=== PATIENT | female | born 1940 | race Caucasian/White ===

== ENCOUNTER 2021-01-30 18:57 | Inpatient (IN) | payer MEDICARE, OTHER ==
[~2021-01-30] VITALS: Ht 165.1 cm; Wt 63.1 kg
[~2021-01-30 18:57] MED LIST: 24HOUR ALLERGY10 MG PO; ALDACTONE25 MG PO; AMOXICILLIN500 MG PO; ANORO ELLIPTA1 EACH INH; ASPIR-TRIN325 MG PO; CARAFATE1 GM PO; CELEXA20 MG PO; CLARITHROMYCIN500 M1 PO; CLARITIN10 MG PO; DIFLUCAN150 MG PO; FLEXERIL10 MG PO; FLONASE ALLER15.8 ML; IMDUR 30MG TABL30 MG PO; K-DUR20 MEQ PO; LASIX20 MG PO; LIPITOR20 MG PO; METFORMIN HCL500 MG PO; MOBIC7.5 MG PO; NORCO 5-325 TA1 EACH PO; NORCO 5/3251 EACH PO; NORVASC5 MG PO; OMEPRAZOLE 20MG20 MG PO; ONE-A-DAY ESSE1 EACH PO; PHENERGAN25 M1 PO; PREDNISONE 20MG20 MG PO; PREDNISONE20 MG PO; PREDNISONE5 MG PO; PRILOSEC20 MG PO; PRINIVIL20 MG PO; PROTONIX 40MG T40 MG PO; SINGULAIR10 MG PO; SYNTHROID100 MCG PO; TRICOR145 MG PO; VENTOLIN (2.5 MG/3 M INH; VICKS VAPORUB O50 GM EXT; VITAMIN D1000 UNI1 PO; ZANTAC150 MG PO; ZESTORETIC 20-1 EACH PO; ZYRTEC10 M3 PO
[2021-01-30 20:02] LABS: BASOPHIL 0.6 % (0-2); EOSINOPHIL 4.4 % (0-7); HCT 24.5 % (37.0-47.0); HGB 8.3 g/dl (12.5-16.0); LYMPHOCYTE 36.5 % (15-48); MCH 31.7 pg (25.0-31.0); MCHC 33.9 g/dL (32.0-36.0); MCV 93.5 fL (78.0-100.0); MPV 11.3 fL (6.0-9.5); NEUTROPHIL 49.3 % (41-80); NRBC 0; PLT 157 K/uL (150-400); RBC 2.62 M/uL (4.20-5.40)
[2021-01-30 20:06] LABS: INR 1.06 (0.9-1.2); PROTHROMBIN TIME 13.1 SECONDS (11.4-13.6)
[2021-01-30 20:13] LABS: ALBUMIN 2.9 g/dL (3.4-5.0); BILIRUBIN - TOTAL 0.3 mg/dL (0.2-1.0); BUN/CREAT RATIO (CALC) 34.6 RATIO; CREATININE 1.56 mg/dL (0.51-0.95); GLOBULIN (CALCULATION) 2.2 g/dL; TOTAL PROTEIN 5.1 g/dL (6.4-8.2)
[2021-01-30 20:15] LABS: POTASSIUM 5.3 mmol/L (3.5-5.1)
[2021-01-30 22:34] LABS: BILIRUBIN NEGATIVE (NEGATIVE); BLOOD NEGATIVE Ery/uL (NEGATIVE); CLARITY CLEAR (CLEAR); COLOR YELLOW (YELLOW); GLUCOSE (U) NORMAL (NORMAL); LEUKOCYTES TRACE Leu/uL (NEGATIVE); NITRITE NEGATIVE (NEGATIVE); PROTEIN 3+ mg/dL (NEGATIVE); UROBILINOGEN 0.2 mg/dL (0.2-1.0); pH 7.5 (5.0-9.0)
[2021-01-30 22:47] LABS: BACTERIA TRACE; SQUAMOUS EPITHELIAL CELLS RARE; TRANSITIONAL EPITHELIAL CELLS RARE; URINARY WBC RARE
[2021-01-31] MEDS ORDERED: MICRO-K10 MEQ PO (00:56)
[2021-01-31] MEDS ORDERED: MOBIC7.5 MG PO (00:58)
[2021-01-31] MEDS ORDERED: ALDACTONE25 M1 PO (00:58)
[2021-01-31] MEDS ORDERED: VENTOLIN HFA IN18 GM INH (00:59)
[2021-01-31] MEDS ORDERED: B12 ACTIVE1000 MCG PO (01:00)
[2021-01-31] MEDS ORDERED: TOPROL XL 25MG25 MG PO (01:01)
[2021-01-31] MEDS ORDERED: TORSEMIDE100 MG PO (01:01)
[2021-01-31 08:29] LABS: INR 1.09 (0.9-1.2); PROTHROMBIN TIME 13.4 SECONDS (11.4-13.6); PTT 32.3 SECONDS (22.2-34.7)
[2021-02-01 04:51] LABS: BASOPHIL 0.8 % (0-2); HCT 21.1 % (37.0-47.0); HGB 7.2 g/dl (12.5-16.0); LYMPHOCYTE 42.9 % (15-48); MCH 31.9 pg (25.0-31.0); MCHC 34.1 g/dL (32.0-36.0); MCV 93.4 fL (78.0-100.0); MONOCYTE 10.4 % (0-12); MPV 11.2 fL (6.0-9.5); NEUTROPHIL 41.7 % (41-80); NRBC 0; PLT 140 K/uL (150-400); RBC 2.26 M/uL (4.20-5.40); WBC 5.3 K/uL (4.0-10.5)
[2021-02-01 05:20] LABS: BUN/CREAT RATIO (CALC) 26.5 RATIO; CREATININE 1.62 mg/dL (0.51-0.95); POTASSIUM 4.7 mmol/L (3.5-5.1)
[2021-02-01 12:48] LABS: RETICULOCYTE COUNT 1.9 % (1.0-2.0)
[2021-02-01 12:56] LABS: IRON % SATURATION 25.9 %SAT (20-50)
[2021-02-01 13:58] LABS: FOLIC ACID (SERUM) 14.1 ng/mL (8.6-58.9)
--- NOTE | 2021-02-01 15:39 | NUR ---
02/01/21 Ms. Terry lives alone. She was 2 months ago after 45 years of marriage. She has 9 children. Her son visits daily. Ms. Terry was independent at home prior to admission. - Will monitor for discharge needs.
[2021-02-02 04:30] LABS: BASOPHIL 0.8 % (0-2); EOSINOPHIL 4.2 % (0-7); HCT 31.9 % (37.0-47.0); LYMPHOCYTE 34.8 % (15-48); MCHC 34.8 g/dL (32.0-36.0); MPV 11.3 fL (6.0-9.5); NEUTROPHIL 50.9 % (41-80); NRBC 0; PLT 141 K/uL (150-400); RBC 3.58 M/uL (4.20-5.40); RDW 13.2 % (11.5-14.0); WBC 6.5 K/uL (4.0-10.5)
[2021-02-02 04:46] LABS: HGB 11.1 g/dl (12.5-16.0); MCV 89.1 fL (78.0-100.0)
[2021-02-02 04:48] LABS: ALBUMIN 2.6 g/dL (3.4-5.0); BILIRUBIN - TOTAL 0.3 mg/dL (0.2-1.0); BUN/CREAT RATIO (CALC) 30.3 RATIO; CREATININE 1.22 mg/dL (0.51-0.95); GLOBULIN (CALCULATION) 2.7 g/dL; MAGNESIUM 1.8 mg/dL (1.8-2.4); PHOSPHORUS 3.2 mg/dL (2.6-4.7); POTASSIUM 4.6 mmol/L (3.5-5.1); TOTAL PROTEIN 5.3 g/dL (6.4-8.2)
[2021-02-03 06:50] LABS: HCT 36.8 % (37.0-47.0); HGB 12.7 g/dl (12.5-16.0); MCH 31.1 pg (25.0-31.0); MCHC 34.5 g/dL (32.0-36.0); MCV 90.2 fL (78.0-100.0); RBC 4.08 M/uL (4.20-5.40); WBC 10.4 K/uL (4.0-10.5)
[2021-02-03 07:12] LABS: BUN/CREAT RATIO (CALC) 23.5 RATIO; CREATININE 1.36 mg/dL (0.51-0.95); MAGNESIUM 2.1 mg/dL (1.8-2.4); POTASSIUM 4.3 mmol/L (3.5-5.1)
[2021-02-03] MEDS ORDERED: PROTONIX 40MG T40 MG PO (16:47)
== END 2021-02-03 17:30 | disposition home or self-care (01) | DRG 811 ==
LOC: FER 18:57 → FTCU 23:31
PROVIDERS: Emergency Medicine; Hospitalist; Internal Medicine Cardiovascular Disease; Nurse Practitioner; Surgery; ADMIT Internal Medicine
PROC: 30233N1 Transfusion of Nonautologous Red Blood Cells into Peripheral Vein, Percutaneous Approach (ICD-10-PCS; 2021-02-01)
PROC: 0DJD8ZZ Inspection of Lower Intestinal Tract, Via Natural or Artificial Opening Endoscopic (ICD-10-PCS; 2021-02-03)
PROC: 0DB98ZX Excision of Duodenum, Via Natural or Artificial Opening Endoscopic, Diagnostic (ICD-10-PCS; principal; 2021-02-03 12:00)
PROC: 0DB68ZX Excision of Stomach, Via Natural or Artificial Opening Endoscopic, Diagnostic (ICD-10-PCS; 2021-02-03 12:00)
DX: D64.9 Anemia, unspecified (principal); I21.A1 Myocardial infarction type 2; N17.9 Acute kidney failure, unspecified; I50.32 Chronic diastolic (congestive) heart failure; J44.9 Chronic obstructive pulmonary disease, unspecified; F17.210 Nicotine dependence, cigarettes, uncomplicated; K29.60 Other gastritis without bleeding; K44.9 Diaphragmatic hernia without obstruction or gangrene; Z20.822 Contact with and (suspected) exposure to COVID-19; I11.0 Hypertensive heart disease with heart failure; E11.9 Type 2 diabetes mellitus without complications; E78.5 Hyperlipidemia, unspecified; E03.9 Hypothyroidism, unspecified; I20.9 Angina pectoris, unspecified; K21.9 Gastro-esophageal reflux disease without esophagitis; E87.5 Hyperkalemia; F32.9 Major depressive disorder, single episode, unspecified; E83.51 Hypocalcemia; R13.10 Dysphagia, unspecified; K22.8 Other specified diseases of esophagus; R63.4 Abnormal weight loss; Z68.23 Body mass index [BMI] 23.0-23.9, adult; Z90.49 Acquired absence of other specified parts of digestive tract; Z85.038 Personal history of other malignant neoplasm of large intestine; Z79.82 Long term (current) use of aspirin; Z79.51 Long term (current) use of inhaled steroids; Z79.84 Long term (current) use of oral hypoglycemic drugs; Z79.899 Other long term (current) drug therapy
CPT/HCPCS: 36415; 36430; 71045; 80048; 80053; 80061; 81001; 82607; 82746; 82962; 83540; 83550; 83735; 83880; 84100; 84145; 84484; 85025; 85610; 85730; 86850; 86900; 86901; 86922; 88305; 93005; 94010; 94640; C9113; G0378; J0610; J1644; J1650; J2250; J2405; J2704; J7030; J7120; P9016; U0002

== ENCOUNTER 2021-04-15 16:27 | Inpatient (IN) | payer MEDICARE, OTHER ==
[~2021-04-15] VITALS: Ht 157.5 cm; Wt 64.6 kg
[~2021-04-15 16:27] MED LIST changes: +ALDACTONE25 M1 PO; +B12 ACTIVE1000 MCG PO; +MICRO-K10 MEQ PO; +TOPROL XL 25MG25 MG PO; +TORSEMIDE100 MG PO; +VENTOLIN HFA IN18 GM INH
[2021-04-15 18:59] LABS: BASOPHIL 0.7 % (0-2); EOSINOPHIL 2.2 % (0-7); HCT 24.1 % (37.0-47.0); HGB 8.1 g/dl (12.5-16.0); LYMPHOCYTE 38.2 % (15-48); MCH 29.8 pg (25.0-31.0); MCHC 33.6 g/dL (32.0-36.0); MCV 88.6 fL (78.0-100.0); MONOCYTE 9.5 % (0-12); MPV 11.7 fL (6.0-9.5); NEUTROPHIL 48.7 % (41-80); NRBC 0; PLT 168 K/uL (150-400); RBC 2.72 M/uL (4.20-5.40); RDW 13.9 % (11.5-14.0); WBC 5.8 K/uL (4.0-10.5)
[2021-04-15 19:13] LABS: ALBUMIN 3.6 g/dL (3.4-5.0); BILIRUBIN - TOTAL 0.4 mg/dL (0.2-1.0); CREATININE 2.46 mg/dL (0.51-0.95); GLOBULIN (CALCULATION) 2.8 g/dL; POTASSIUM 5.7 mmol/L (3.5-5.1); TOTAL PROTEIN 6.4 g/dL (6.4-8.2)
[2021-04-15 20:31] LABS: INR 1.08 (0.9-1.2); PROTHROMBIN TIME 13.4 SECONDS (11.8-13.4)
[2021-04-15] MEDS ORDERED: NORVASC5 MG PO (20:46)
[2021-04-15] MEDS ORDERED: K-DUR20 MEQ PO (20:48)
[2021-04-15] MEDS ORDERED: COLESTID 1GM TAB1 GM PO (20:50)
[2021-04-15] MEDS ORDERED: MOBIC7.5 MG PO (20:52)
[2021-04-15] MEDS ORDERED: ASPIRIN325 MG PO (20:53)
[2021-04-16 05:55] LABS: BASOPHIL 0.7 % (0-2); EOSINOPHIL 2.2 % (0-7); HCT 21.6 % (37.0-47.0); HGB 7.4 g/dl (12.5-16.0); LYMPHOCYTE 44.4 % (15-48); MCH 30.3 pg (25.0-31.0); MCHC 34.3 g/dL (32.0-36.0); MCV 88.5 fL (78.0-100.0); MONOCYTE 9.9 % (0-12); MPV 11.6 fL (6.0-9.5); NEUTROPHIL 42.8 % (41-80); NRBC 0; PLT 141 K/uL (150-400); RBC 2.44 M/uL (4.20-5.40); RDW 13.8 % (11.5-14.0); WBC 4.6 K/uL (4.0-10.5)
[2021-04-16 06:14] LABS: ALBUMIN 2.9 g/dL (3.4-5.0); BILIRUBIN - TOTAL 0.3 mg/dL (0.2-1.0); CREATININE 2.39 mg/dL (0.51-0.95); GLOBULIN (CALCULATION) 2.3 g/dL; POTASSIUM 4.9 mmol/L (3.5-5.1); TOTAL PROTEIN 5.2 g/dL (6.4-8.2)
[2021-04-16 12:11] LABS: AMYLASE 83 U/L (25-115); LIPASE 367 U/L (73-393)
[2021-04-17 07:29] LABS: BASOPHIL 0.4 % (0-2); EOSINOPHIL 2.1 % (0-7); HCT 19.4 % (37.0-47.0); HGB 6.6 g/dl (12.5-16.0); LYMPHOCYTE 24.4 % (15-48); MCH 31.1 pg (25.0-31.0); MCV 91.5 fL (78.0-100.0); MONOCYTE 8.4 % (0-12); MPV 11.9 fL (6.0-9.5); NEUTROPHIL 64.3 % (41-80); NRBC 0; PLT 117 K/uL (150-400); RBC 2.12 M/uL (4.20-5.40); WBC 4.8 K/uL (4.0-10.5)
[2021-04-17 07:47] LABS: CREATININE 1.63 mg/dL (0.51-0.95); POTASSIUM 4.5 mmol/L (3.5-5.1)
[2021-04-18 06:19] LABS: BASOPHIL 0.6 % (0-2); EOSINOPHIL 3.6 % (0-7); HCT 28.8 % (37.0-47.0); LYMPHOCYTE 30.5 % (15-48); MCH 30.3 pg (25.0-31.0); MCV 91.7 fL (78.0-100.0); MONOCYTE 9.1 % (0-12); MPV 11.7 fL (6.0-9.5); NEUTROPHIL 55.8 % (41-80); NRBC 0; PLT 117 K/uL (150-400); RBC 3.14 M/uL (4.20-5.40); RDW 14.9 % (11.5-14.0); WBC 5.1 K/uL (4.0-10.5)
[2021-04-18 06:23] LABS: HGB 9.5 g/dl (12.5-16.0)
[2021-04-18 06:50] LABS: IRON % SATURATION 48.7 %SAT (20-50)
[2021-04-18 08:05] LABS: BUN/CREAT RATIO (CALC) 29.9 RATIO; CREATININE 1.57 mg/dL (0.51-0.95); POTASSIUM 4.8 mmol/L (3.5-5.1)
[2021-04-18] MEDS ORDERED: LANSOPRAZOLE30 MG PO (12:08)
[2021-04-18] MEDS ORDERED: FOLIC ACID1 MG PO (12:08)
[2021-04-18] MEDS ORDERED: ASPIRIN EC81 MG PO (12:12)
== END 2021-04-18 13:00 | disposition home or self-care (01) | DRG 378 ==
LOC: FER 16:27 → FMS 20:45
PROVIDERS: Emergency Medicine; Internal Medicine; Nurse Practitioner; Surgery; ADMIT Internal Medicine
PROC: 0DJ08ZZ Inspection of Upper Intestinal Tract, Via Natural or Artificial Opening Endoscopic (ICD-10-PCS; 2021-04-16)
PROC: 30233N1 Transfusion of Nonautologous Red Blood Cells into Peripheral Vein, Percutaneous Approach (ICD-10-PCS; principal; 2021-04-17)
DX: K92.1 Melena (principal); N17.9 Acute kidney failure, unspecified; I13.0 Hypertensive heart and chronic kidney disease with heart failure and stage 1 through stage 4 chronic kidney disease, or unspecified chronic kidney disease; E03.9 Hypothyroidism, unspecified; J44.9 Chronic obstructive pulmonary disease, unspecified; E78.5 Hyperlipidemia, unspecified; F32.9 Major depressive disorder, single episode, unspecified; Z20.822 Contact with and (suspected) exposure to COVID-19; D52.9 Folate deficiency anemia, unspecified; N18.30 Chronic kidney disease, stage 3 unspecified; I50.9 Heart failure, unspecified; E11.22 Type 2 diabetes mellitus with diabetic chronic kidney disease; M19.90 Unspecified osteoarthritis, unspecified site; R01.1 Cardiac murmur, unspecified; F17.210 Nicotine dependence, cigarettes, uncomplicated; K21.9 Gastro-esophageal reflux disease without esophagitis; K44.9 Diaphragmatic hernia without obstruction or gangrene; Z90.49 Acquired absence of other specified parts of digestive tract; Z85.038 Personal history of other malignant neoplasm of large intestine; Z98.890 Other specified postprocedural states; Z79.84 Long term (current) use of oral hypoglycemic drugs; Z79.51 Long term (current) use of inhaled steroids; Z79.82 Long term (current) use of aspirin; Z79.899 Other long term (current) drug therapy; Z79.890 Hormone replacement therapy
CPT/HCPCS: 36415; 36430; 71045; 78278; 80048; 80053; 82150; 82607; 82728; 82746; 82962; 83540; 83550; 83690; 83880; 84484; 85025; 85610; 86850; 86900; 86901; 86922; 93005; 94010; 94640; A4641; A9560; C9113; G0378; J2250; J2405; J2704; J7030; J7120; P9016; U0002

== ENCOUNTER 2021-06-14 12:00 | Emergency (ER) | payer MEDICARE, OTHER ==
[~2021-06-14 12:00] MED LIST changes: +ASPIRIN EC81 MG PO; +ASPIRIN325 MG PO; +COLESTID 1GM TAB1 GM PO; +FOLIC ACID1 MG PO; +LANSOPRAZOLE30 MG PO
[2021-06-14 12:37] LABS: BILIRUBIN NEGATIVE (NEGATIVE); BLOOD NEGATIVE Ery/uL (NEGATIVE); CLARITY CLEAR (CLEAR); COLOR YELLOW (YELLOW); GLUCOSE (U) NORMAL (NORMAL); LEUKOCYTES 1+ Leu/uL (NEGATIVE); NITRITE NEGATIVE (NEGATIVE); PROTEIN TRACE (LOW) mg/dL (NEGATIVE); UROBILINOGEN 0.2 mg/dL (0.2-1.0); pH 5.5 (5.0-9.0)
[2021-06-14 12:45] LABS: BASOPHIL 0.4 % (0-2); EOSINOPHIL 1.5 % (0-7); HGB 10.9 g/dl (12.5-16.0); LYMPHOCYTE 25.4 % (15-48); MCH 31.6 pg (25.0-31.0); MCHC 34.1 g/dL (32.0-36.0); MCV 92.8 fL (78.0-100.0); MONOCYTE 10.3 % (0-12); MPV 11.5 fL (6.0-9.5); NEUTROPHIL 61.7 % (41-80); NRBC 0; PLT 207 K/uL (150-400); RBC 3.45 M/uL (4.20-5.40); RDW 14.8 % (11.5-14.0)
[2021-06-14 12:55] LABS: BACTERIA TRACE; SQUAMOUS EPITHELIAL CELLS RARE; URINARY WBC RARE
[2021-06-14 13:29] LABS: ALBUMIN 3.4 g/dL (3.4-5.0); BILIRUBIN - TOTAL 0.4 mg/dL (0.2-1.0); CREATININE 1.9 mg/dL (0.51-0.95); POTASSIUM 4.5 mmol/L (3.5-5.1); TOTAL PROTEIN 6.4 g/dL (6.4-8.2)
== END 2021-06-14 14:43 | disposition home or self-care (01) ==
LOC: FER 12:00
PROVIDERS: Internal Medicine; Nurse Practitioner Family
DX: R53.81 Other malaise (principal); E11.9 Type 2 diabetes mellitus without complications; J44.9 Chronic obstructive pulmonary disease, unspecified; I11.0 Hypertensive heart disease with heart failure; I50.9 Heart failure, unspecified; F17.210 Nicotine dependence, cigarettes, uncomplicated
CPT/HCPCS: 36415; 71045; 80053; 81001; 82270; 84484; 85025; 87088; 93005

== ENCOUNTER 2021-09-02 15:27 | Emergency (ER) | payer MEDICARE, OTHER ==
[2021-09-02 17:46] LABS: BILIRUBIN NEGATIVE (NEGATIVE); BLOOD NEGATIVE Ery/uL (NEGATIVE); CLARITY CLEAR (CLEAR); COLOR YELLOW (YELLOW); GLUCOSE (U) NORMAL (NORMAL); LEUKOCYTES TRACE Leu/uL (NEGATIVE); NITRITE NEGATIVE (NEGATIVE); PROTEIN TRACE (LOW) mg/dL (NEGATIVE); UROBILINOGEN 0.2 mg/dL (0.2-1.0); pH 5.5 (5.0-9.0)
[2021-09-02 17:46] LABS: BASOPHIL 0.8 % (0-2); HCT 27.5 % (37.0-47.0); HGB 9.2 g/dl (12.5-16.0); MCH 31.6 pg (25.0-31.0); MCHC 33.5 g/dL (32.0-36.0); MCV 94.5 fL (78.0-100.0); MPV 11.2 fL (6.0-9.5); NEUTROPHIL 57.7 % (41-80); NRBC 0; PLT 203 K/uL (150-400); RBC 2.91 M/uL (4.20-5.40); RDW 11.9 % (11.5-14.0); WBC 6.5 K/uL (4.0-10.5)
[2021-09-02 17:53] LABS: BACTERIA TRACE; SQUAMOUS EPITHELIAL CELLS RARE
[2021-09-02 17:56] LABS: ALBUMIN 4.3 g/dL (3.4-5.0); BILIRUBIN - TOTAL 0.3 mg/dL (0.2-1.0); CREATININE 2.15 mg/dL (0.51-0.95); GLOBULIN (CALCULATION) 2.4 g/dL; POTASSIUM 4.7 mmol/L (3.5-5.1); TOTAL PROTEIN 6.7 g/dL (6.4-8.2)
[2021-09-02 18:47] LABS: CORONAVIRUS 2019 SARS-COV-2 NEGATIVE (NEGATIVE); INFLUENZA A NAA NEGATIVE (NEGATIVE)
== END 2021-09-02 20:21 | disposition home or self-care (01) ==
LOC: FER 15:27
PROVIDERS: Emergency Medicine; Physician Assistant
DX: J02.9 Acute pharyngitis, unspecified (principal); R05.9 Cough, unspecified; R09.81 Nasal congestion; I13.0 Hypertensive heart and chronic kidney disease with heart failure and stage 1 through stage 4 chronic kidney disease, or unspecified chronic kidney disease; E11.22 Type 2 diabetes mellitus with diabetic chronic kidney disease; N18.30 Chronic kidney disease, stage 3 unspecified; I50.9 Heart failure, unspecified; F17.210 Nicotine dependence, cigarettes, uncomplicated; Z20.822 Contact with and (suspected) exposure to COVID-19; Z79.82 Long term (current) use of aspirin
CPT/HCPCS: 36415; 71046; 80053; 81001; 85025; U0002

== ENCOUNTER 2021-09-18 12:28 | Emergency (ER) | payer MEDICARE, OTHER ==
[2021-09-18 13:41] LABS: BASOPHIL 0.6 % (0-2); EOSINOPHIL 2.7 % (0-7); HCT 24.3 % (37.0-47.0); HGB 7.9 g/dl (12.5-16.0); LYMPHOCYTE 28.5 % (15-48); MCH 32.2 pg (25.0-31.0); MCHC 32.5 g/dL (32.0-36.0); MCV 99.2 fL (78.0-100.0); MONOCYTE 9.5 % (0-12); MPV 10.9 fL (6.0-9.5); NEUTROPHIL 58.5 % (41-80); NRBC 0; PLT 157 K/uL (150-400); RBC 2.45 M/uL (4.20-5.40); RDW 12.2 % (11.5-14.0); WBC 5.2 K/uL (4.0-10.5)
[2021-09-18 13:45] LABS: INR 1.13 (0.9-1.2); PROTHROMBIN TIME 13.9 SECONDS (11.8-13.4); PTT 26.4 SECONDS (24.4-34.7)
[2021-09-18 14:06] LABS: CORONAVIRUS 2019 SARS-COV-2 NEGATIVE (NEGATIVE); INFLUENZA A NAA NEGATIVE (NEGATIVE)
[2021-09-18 14:25] LABS: ALBUMIN 3.3 g/dL (3.4-5.0); BILIRUBIN - TOTAL 0.2 mg/dL (0.2-1.0); BUN/CREAT RATIO (CALC) 23.8 RATIO; CREATININE 1.3 mg/dL (0.51-0.95); GLOBULIN (CALCULATION) 2.2 g/dL; POTASSIUM 4.7 mmol/L (3.5-5.1); TOTAL PROTEIN 5.5 g/dL (6.4-8.2)
[2021-09-18 14:37] LABS: LACTIC ACID 1.1 mmol/L (0.4-1.9)
[2021-09-18 15:37] LABS: BILIRUBIN NEGATIVE (NEGATIVE); BLOOD NEGATIVE Ery/uL (NEGATIVE); CLARITY HAZY (CLEAR); COLOR YELLOW (YELLOW); GLUCOSE (U) NORMAL (NORMAL); LEUKOCYTES NEGATIVE Leu/uL (NEGATIVE); NITRITE NEGATIVE (NEGATIVE); PROTEIN 2+ mg/dL (NEGATIVE); SPECIFIC GRAVITY 1.015 (1.001-1.030); UROBILINOGEN 0.2 mg/dL (0.2-1.0); pH 5.5 (5.0-9.0)
[2021-09-18 16:07] LABS: URINARY RBC RARE
[2021-09-18] MEDS ORDERED: PROTONIX 40MG T40 MG PO (18:22)
[2021-09-18] MEDS ORDERED: BENTYL10 MG PO (18:23)
== END 2021-09-18 18:24 | disposition home or self-care (01) ==
LOC: FER 12:28
PROVIDERS: Nurse Practitioner Family
DX: K57.31 Diverticulosis of large intestine without perforation or abscess with bleeding (principal); I12.9 Hypertensive chronic kidney disease with stage 1 through stage 4 chronic kidney disease, or unspecified chronic kidney disease; E11.22 Type 2 diabetes mellitus with diabetic chronic kidney disease; N18.9 Chronic kidney disease, unspecified; D63.1 Anemia in chronic kidney disease; J44.9 Chronic obstructive pulmonary disease, unspecified; F17.210 Nicotine dependence, cigarettes, uncomplicated; Z20.822 Contact with and (suspected) exposure to COVID-19
CPT/HCPCS: 36415; 36430; 80053; 81001; 82270; 82728; 83605; 85025; 85610; 85730; 86850; 86900; 86901; 86922; 87040; C9113; J7040; P9016; U0002